=== PATIENT | female | born 1985 ===

== ENCOUNTER 2016-06-25 15:35 | Observation (INO) | payer MEDICAID, OTHER ==
[2016-06-25] MEDS ORDERED: Sodium Chloride 0.9% 1,000 ML IV STA (15:54)
--- NOTE | 2016-06-25 15:59 | ED PDOC ---
Arrival/HPI - General Historian: Patient <Tito Ingram Jr. - Last Filed: 06/25/16 18:57> <Noah Chilel - Last Filed: 06/25/16 21:16> - General Chief Complaint: Abdominal Pain Time Seen by Provider: 06/25/16 15:42 - History of Present Illness Narrative History of Present Illness (Text): Patient is a 31 yr old female who is c/o having nausea and vomiting since Friday. She states that she vomits everything that she eats. No fever. After several episodes of retching and vomiting, she later developed some LUQ and left flank pain (but her symptoms did not start out as abd pain). Pt describes her pain as a burning sensation. Pt took dramamine for her symptoms and it did help the nausea. No diarrhea. No dysuria. LMP was 2 wks ago. PMD: None . (Tito Ingram Jr.) Past Medical History - Provider Review Nursing Documentation Reviewed: Yes - Psychiatric Hx Substance Use: No - Surgical History Hx Appendectomy: Yes <Tito Ingram Jr. - Last Filed: 06/25/16 18:57> Family/Social History - Physician Review Nursing Documentation Reviewed: Yes Family/Social History: Hypertension Smoking Status: Unknown If Ever Smoked Hx Alcohol Use: Yes Frequency of alcohol use: Socially Hx Substance Use: No <Tito Ingram Jr. - Last Filed: 06/25/16 18:57> Allergies/Home Meds <Tito Ingram Jr. - Last Filed: 06/25/16 18:57> <Noah Chilel - Last Filed: 06/25/16 21:16> Allergies/Adverse Reactions: Allergies No Known Allergies Allergy (Verified 06/25/16 15:49) Home Medications: Home Meds Medication Instructions Recorded Confirmed Levonorgestrel-Ethin Estradiol 1 tab PO DAILY 06/25/16 06/25/16 [Lutera 0.02 mg-0.1 mg] Review of Systems - Review of Systems Constitutional: Fatigue Respiratory: Normal Cardiovascular: Normal Gastrointestinal: Abdominal Pain, Vomiting Skin: Normal Neurological: Normal <Tito Ingram Jr. - Last Filed: 06/25/16 18:57> Physical Exam Vital Signs Reviewed: Yes Temperature: Afebrile Blood Pressure: Normal Pulse: Regular Respiratory Rate: Normal Appearance: Positive for: Non-Toxic, Comfortable Pain Distress: None Mental Status: Positive for: Alert and Oriented X 3 - Systems Exam Head: Present: Atraumatic, Normocephalic Pupils: Present: PERRL Extroacular Muscles: Present: EOMI Conjunctiva: Present: Normal Ears: Present: Normal Mouth: Present: Dry Pharnyx: Present: Normal Nose (External): Present: Atraumatic Neck: Present: Normal Range of Motion Respiratory/Chest: Present: Clear to Auscultation, Good Air Exchange. No: Respiratory Distress, Accessory Muscle Use Cardiovascular: Present: Regular Rate and Rhythm, Normal S1, S2. No: Murmurs Abdomen: Present: Normal Bowel Sounds, Other (soft, mild LUQ tenderness, no rebound, no guarding) Back: Present: CVA Tenderness (left) Upper Extremity: Present: Normal Inspection. No: Edema Lower Extremity: Present: Normal Inspection. No: Edema Neurological: Present: Speech Normal, Motor Func Grossly Intact, Normal Sensory Function Skin: Present: Warm, Dry Psychiatric: Present: Alert, Oriented x 3, Normal Insight, Normal Concentration <Tito Ingram Jr. - Last Filed: 06/25/16 18:57> Vital Signs Temp Pulse Resp BP Pulse Ox 06/25/16 17:14 66 18 137/80 99 06/25/16 16:43 68 18 137/69 97 06/25/16 15:48 98.6 F 91 H 18 130/73 99 Medical Decision Making <Tito Ingram Jr. - Last Filed: 06/25/16 18:57> <Noah Chilel - Last Filed: 06/25/16 21:16> ED Course and Treatment: Initial Impression: Abd pain with N/V Differential diagnosis includes but is not limited to: viral gastroenteritis, bacterial gastroenteritis, /hyperemesis gravidaruum Initial plan: Will check labs, get test and hydrate (Tito Ingram Jr.) - Lab Interpretations Lab Results: 06/25/16 15:50 06/25/16 15:50 Lab Results 06/25/16 16:20: Urine Color Straw, Urine Appearance Clear, Urine pH 7.0, Ur Specific [place] <= 1.005, Urine Protein Negative, Urine Glucose (UA) Negative, Urine Ketones Negative, Urine Blood Trace-lysed H, Urine Nitrate Negative, Urine Bilirubin Negative, Urine Urobilinogen 0.2, Ur Leukocyte Esterase Trace H , Urine RBC 0 - 2, Urine WBC 0 - 2, Ur Epithelial Cells 0 - 2, Urine Bacteria Trace 06/25/16 15:50: WBC 17.1 H, RBC 4.93, Hgb 14.6, Hct 43.2, MCV 87.6, MCH 29.6, MCHC 33.8, RDW 13.3, Plt Count 408, MPV 10.1, Gran % 83.9 H, Lymph % (Auto) 13.0 L, Thayer % (Auto) 3.0, Eos % (Auto) 0.0 L, Baso % (Auto) 0.1, Gran # 14.31 H , Lymph # 2.2, Thayer # 0.5, Eos # 0.0, Baso # 0.02, Sodium 139, Potassium 3.2 L, Chloride 98, Carbon Dioxide 29, Anion Gap 15, BUN 11, Creatinine 0.6, Est GFR ( Amer) > 60, Est GFR (Non-Af Amer) > 60, Random Glucose 127 H, Calcium 9.8, Total Bilirubin 0.8, AST 28, ALT 43, Alkaline Phosphatase 74, Total Protein 8.2, Albumin 4.5, Globulin 3.7, Albumin/Globulin Ratio 1.2, Lipase 97, Beta HCG, Quant < 2.39 - Medication Orders Current Medication Orders: Sodium Chloride (Sodium Chloride 0.9%) 1,000 mls @ 250 mls/hr IV .Q4H RONALD Last Admin: 06/25/16 16:58 Dose: 250 MLS/HR eMAR Start Stop Document 06/25/16 16:58 SE (Rec: 06/25/16 16:58 SE [id number]) Intravenous Solution Start Date 06/25/16 Start Time 16:58 Ondansetron HCl (Zofran Inj) 4 mg IVP ONCE ONE Stop: 06/25/16 21:12 Discontinued Medications Famotidine (Pepcid) 20 mg IVP STAT STA Stop: 06/25/16 15:55 Last Admin: 06/25/16 16:27 Dose: 20 MG IVP Administration Document 06/25/16 16:27 SE (Rec: 06/25/16 16:28 SE [id number]) Charges for Administration # of IVP Administrations 1 Sodium Chloride (Sodium Chloride 0.9%) 1,000 mls @ 2,000 mls/hr IV .Q30M STA Stop: 06/25/16 16:23 Last Admin: 06/25/16 16:03 Dose: 2,000 MLS/HR eMAR Start Stop Document 06/25/16 16:03 SE (Rec: 06/25/16 16:03 SE [id number]) Intravenous Solution Start Date 06/25/16 Start Time 16:03 Potassium Chloride (Potassium Chloride 10 Meq/100 Ml) 100 mls @ 100 mls/hr IVPB ONCE ONE Stop: 06/25/16 17:35 Last Admin: 06/25/16 16:58 Dose: 100 MLS/HR eMAR Start Stop Document 06/25/16 16:58 SE (Rec: 06/25/16 16:58 SE [id number]) Intravenous Solution Start Date 06/25/16 Start Time 16:58 Iohexol (Omnipaque 240 (50 Ml)) Confirm Administered Dose 50 ml .ROUTE .STK-MED ONE Stop: 06/25/16 16:56 Iohexol (Omnipaque 350 100 Ml) Confirm Administered Dose 350 mg .ROUTE .STK-MED ONE Stop: 06/25/16 16:56 Metoclopramide HCl (Reglan) 10 mg IV STAT STA Stop: 06/25/16 18:09 Last Admin: 06/25/16 18:38 Dose: 10 MG eMAR Start Stop Document 06/25/16 18:38 SE (Rec: 06/25/16 18:38 [id number]) Intravenous Solution Start Date 06/25/16 Start Time 18:38 Ondansetron HCl (Zofran Inj) 4 mg IVP ONCE ONE Stop: 06/25/16 16:42 Last Admin: 06/25/16 16:58 Dose: 4 MG IVP Administration Document 06/25/16 16:58 SE (Rec: 06/25/16 16:58 [id number]) Charges for Administration # of IVP Administrations 1 Ondansetron HCl (Zofran Inj) 4 mg IVP ONCE ONE Stop: 06/25/16 17:17 Last Admin: 06/25/16 17:16 Dose: 4 MG IVP Administration Document 06/25/16 17:16 SE (Rec: 06/25/16 17:32 [id number]) Charges for Administration # of IVP Administrations 1 ED OBSERVATION Date of observation admission: 06/25/16 Time of observation admission: 16:54 <Tito Ingram Jr. - Last Filed: 06/25/16 18:57> <Noah Chilel - Last Filed: 06/25/16 21:16> - Observation admission statement Patient is being placed in observation because:: Patient with undifferentiated abdominal pain and will need more extensive work up (CT scan) (Tito Ingram Jr.) - Goals of Observation Goals of observation are:: Improvement of symptoms (Tito Ingram Jr.) - Progress Note Progress Note: 06/25/16 16:55 Patient with low potassium; will replace. Pt nauseous--Zofran ordered. (Tito Ingram Jr.) 06/25/16 19:07 Case endorsed to me by Dr. Ingram, pending CT scan, re-evaluation, and final disposition. CT scan was unremarkable, pt however with intractable nausea/ vomiting. Will admit for further evaluation 06/25/16 21:09 Case discussed with medical attendant manager consumer, who is aware and agrees with plan. Case discussed with Dr. Shearer, who is aware and agrees with plan. Accepts pt in to hospitalist service. Pt will go to [facility] observation for abdominal pain and intractable nausea/vomiting. (Noah Chilel) Disposition/Present on Arrival - Present on Arrival Any Indicators Present on Arrival: No History of DVT/PE: No History of Uncontrolled Diabetes: No Urinary Catheter: No History of Decub. Ulcer: No History Surgical Site Infection Following: None - Disposition Have Diagnosis and Disposition been Completed?: Yes Disposition Time: 18:57 <Tito Ingram Jr. - Last Filed: 06/25/16 18:57> - Present on Arrival Any Indicators Present on Arrival: No History of DVT/PE: No History of Uncontrolled Diabetes: No Urinary Catheter: No History of Decub. Ulcer: No History Surgical Site Infection Following: None - Disposition Have Diagnosis and Disposition been Completed?: Yes Disposition Time: 21:14 Patient Plan: Observation <Noah Chilel - Last Filed: 06/25/16 21:16> - Disposition Diagnosis: Nausea with vomiting, unspecified, Abdominal pain Patient Problems: Current Active Problems Problem Status Diagnosed Abdominal pain Acute Nausea with vomiting, unspecified Acute Physician Patient Turnover - . Patient Signed Over To: Noah Chilel Handoff Comments: Pt s/o to Dr. Chilel at 7:00 PM. Sign out is to follow up CT scan and reassess pt and dispo accordingly. <Tito Ingram Jr. - Last Filed: 06/25/16 18:57>
[2016-06-25 16:00] VITALS: BMI 30.9
[2016-06-25 16:06] LABS: ADD MANUAL DIFF? NO
[2016-06-25 16:25] LABS: ALB/GLOB RATIO 1.2 (1.1-1.8); ALKALINE PHOSPHATASE 74 U/L (38-133); ALT/SGPT 43 U/L (7-56); AST/SGOT 28 U/L (15-39); BILIRUBIN,TOTAL 0.8 mg/dL (0.2-1.3); BLOOD UREA NITROGEN 11 mg/dL (7-21); CALCIUM 9.8 mg/dL (8.4-10.5); CARBON DIOXIDE 29 mmol/L (21-33); CHLORIDE 98 mmol/L (98-107); GFR AFRICAN-AMERICAN > 60; GLUCOSE,RANDOM 127 mg/dL (70-110); LIPASE 97 U/L (23-300); POTASSIUM 3.2 mmol/L (3.6-5.0); SODIUM 139 mmol/L (132-148); TOTAL PROTEIN 8.2 g/dL (5.8-8.3)
[2016-06-25 16:28] LABS: BASO # 0.02 K/mm3 (0.0-2.0); BASO % 0.1 % (0.0-3.0); GRAN # 14.31 (1.4-6.5); GRAN % 83.9 % (50.0-68.0); HEMATOCRIT 43.2 % (36.0-48.0); LYMPH # 2.2 (1.2-3.4); MEAN CELL VOLUME 87.6 fL (80.0-105.0); MEAN CORPUSCULAR HEMOGLOBIN 29.6 pg (25.0-35.0); MEAN CORPUSCULAR HGB CONC 33.8 g/dl (31.0-37.0); MEAN PLATELET VOLUME 10.1 fl (7.0-11.0); MONO # 0.5 (0.1-0.6); PLATELET COUNT 408 10^3/uL (120.0-450.0); RED CELL DISTRIBUTION WIDTH 13.3 % (11.5-14.5); WHITE BLOOD COUNT 17.1 10^3/ul (4.5-11.0)
[2016-06-25] MEDS ORDERED: Potassium Chloride 10 mEq 100 ML IVPB ONE (16:36)
[2016-06-25 16:45] LABS: URINE APPEARANCE CLEAR (CLEAR); URINE BILIRUBIN NEGATIVE (NEGATIVE); URINE BLOOD TRACE-LYSED (NEGATIVE); URINE COLOR STRAW (YELLOW); URINE GLUCOSE (UA) NEGATIVE (NEGATIVE); URINE KETONE NEGATIVE (NEGATIVE); URINE LEUKOCYTE ESTERASE TRACE Leu/uL (NEGATIVE); URINE PROTEIN NEGATIVE mg/dL (<30 mg/dL); URINE UROBILINOGEN 0.2 E.U./dL (<1 E.U./dL)
[2016-06-25] MEDS ORDERED: Iohexol 240 (50 ml) ONE (16:55)
[2016-06-25] MEDS ORDERED: Iohexol 350 MG/100 ML VIAL ONE (16:55)
[2016-06-25] MEDS: Sodium Chloride 0.9% 1,000 ML IV SCH ×2 (16:58→23:23)
[2016-06-25 17:18] LABS: URINE WBC 0 - 2 /hpf (0-6)
[2016-06-25 17:19] LABS: URINE BACTERIA TRACE (NEG); URINE EPITHELIAL CELLS 0 - 2 /hpf (0-5); URINE RBC 0 - 2 /hpf (0-2)
--- NOTE | 2016-06-25 23:05 | CP.PCM.HP ---
<Marko South - Last Filed: 06/25/16 23:27> History of Present Illness - History of Present Illness History of Present Illness: 31 F with PMHx of anxiety presents to [facility] with complaints of intractable nausea and vomiting. Pt states that she recently was at a bbq on friday06/23/16 , ate half of a hamburger potatoe salad and had a few alcoholic beverages when she began to feel nauseous. Pt states that approx 20 mins after eating she vomited what she had ate. She continued to feel nauseous for the rest of the night and vomited approx 4-5 times, mix of digested and undigested food at first then bilious emesis. Pt states that she felt a "lump" in her throat and then began to feel nauseous. The following day, the pt had an appetite and had a banana, however was unable to tolerate and vomited. Pt again vomited 2-3 times. After 2 days of not tolerating PO, with continued n/v she began to expereince dull abdominal pain across the upper quadrants, with a greater intensity towards the LUQ, as well as left flank pain. The abdominal pain is described as a diffuse ache, and the left flank pain is described as sharp in nature. Pt had an episode of emesis while in ED of pink fluid. Pt denied fever, chills, cough, sob, diplopia, blurry vision, loc, dizziness, chest pains, palpitations, d/c, dysuria, hematuria, or urinary symptoms. Pt last bm was this morning and was normal-loose. PMHx: Anxiety, GERD PSHx: Appendectomy SHx: Denied tobacco abuse, admits to social etoh, and 1-2/mo marijuana. LMP 2 weeks ago FamHx: Mom: HTN/DM Meds: OCP Allergies: Seasonal, nkda PMD: None CONSTRUCTION PRODUCER: Dr. Zavaleta Present on Admission - Present on Admission Any Indicators Present on Admission: No History of DVT/PE: No History of Uncontrolled Diabetes: No Urinary Catheter: No Decubitus Ulcer Present: No Review of Systems - Review of Systems Review of Systems: as per HPI otherwise negative Past Patient History - Past Social History Smoking Status: Unknown If Ever Smoked - PSYCHIATRIC Hx Substance Use: No - SURGICAL HISTORY Hx Appendectomy: Yes Meds Allergies/Adverse Reactions: Allergies Allergy/AdvReac Type Severity Reaction Status Date / Time No Known Allergies Allergy Verified 06/25/16 15:49 Physical Exam - Constitutional Appears: No Acute Distress - Head Exam Head Exam: ATRAUMATIC, NORMAL INSPECTION, NORMOCEPHALIC - Eye Exam Eye Exam: EOMI, Normal appearance, PERRL Pupil Exam: NORMAL ACCOMODATION, PERRL - ENT Exam ENT Exam: Mucous Membranes Dry - Neck Exam Neck exam: Positive for: Normal Inspection - Respiratory Exam Respiratory Exam: Clear to Auscultation Bilateral, NORMAL BREATHING PATTERN - Cardiovascular Exam Cardiovascular Exam: REGULAR RHYTHM, +S1, +S2 - GI/Abdominal Exam GI & Abdominal Exam: Normal Bowel Sounds, Soft, Tenderness (LUQ). absent: Distended, Rebound, Rigid - Extremities Exam Extremities exam: Positive for: normal inspection - Back Exam Back exam: CVA tenderness (L) - Neurological Exam Neurological exam: Alert, CN II-XII Intact, Normal Gait, Oriented x3, Reflexes Normal - Psychiatric Exam Psychiatric exam: Normal Affect, Normal Mood - Skin Skin Exam: Dry, Intact, Normal Color, Warm Results - Vital Signs Recent Vital Signs: Last Vital Signs Temp 98.7 F 06/25/16 21:45 Pulse 70 06/25/16 22:18 Resp 16 06/25/16 22:18 BP 143/75 06/25/16 21:45 Pulse Ox 98 06/25/16 22:18 - Labs Result Diagrams: 06/25/16 15:50 06/25/16 15:50 Assessment & Plan - Assessment and Plan (Free Text) Assessment: 31 F with PMHx of anxiety presents to [facility] with complaints of intractable nausea and vomiting, admitted to med/surg for further eval. 1. Intractable n/v - CT Abd did not demonstrate any acute pathology, no obstructive uropathy, no bowel obstruction, pt did not tolerate po contrast, study with IV contrast only - IVF, Zofran, Reglan - NPO - tsh, ft4, ESR - negative b-hcg, negative lipase - GI consulted, Dr. Reyna 2. Leukocytosis - associated n/v, no diarrhea, afebrile - WBC: 17.1 - no clear source - f/u septic workup - ID consulted, Dr. Medina 3. Hypokalemia - 2/2 n/v - supplement as needed 4. GI ppx 5. DVT ppx seen reviewed and discussed with attending <Yogi Shearer - Last Filed: 06/26/16 02:50> Results - Vital Signs Recent Vital Signs: Last Vital Signs Temp 98.7 F 06/26/16 00:29 Pulse 70 06/26/16 00:29 Resp 16 06/26/16 00:29 BP 140/70 06/26/16 00:29 Pulse Ox 98 06/25/16 22:18 - Labs Result Diagrams: 06/25/16 15:50 06/25/16 15:50 Attending/Attestation - Attestation I have personally seen and examined this patient.: Yes I have fully participated in the care of the patient.: Yes I have reviewed all pertinent clinical information: Yes Notes (Text): 06/26/16 01:15 Patient was seen by me when she was in bed # 566-01. Agree with history , physical examination, assessment and plan. This 31 year old white woman who has past medical history of seasonal allergies , sinus problems,anxiety, social use of alcohol, GERD, eyeglasses for far vision , family history of gestational DM (Mother),appendectomy is admitted for intractable nausea/vomiting, hypokalemia.
[2016-06-25] MEDS: Potassium Chloride 10 mEq 100 ML IVPB SCH (23:12)
[2016-06-26] MEDS: Potassium Chloride 10 mEq 100 ML IVPB SCH (02:00)
[2016-06-26] MEDS ORDERED: HYDROmorphone 0.5 mg/0.5 ml ISec IVP STA (05:42)
[2016-06-26 06:54] LABS: ADD MANUAL DIFF? NO
[2016-06-26 07:07] LABS: BASO # 0.01 K/mm3 (0.0-2.0); BASO % 0.1 % (0.0-3.0); GRAN % 70.7 % (50.0-68.0); HEMATOCRIT 38.8 % (36.0-48.0); LYMPH % 20.7 % (22.0-35.0); MEAN PLATELET VOLUME 10.1 fl (7.0-11.0); MONO # 1.2 (0.1-0.6); MONO % 8.5 % (1.0-6.0); PLATELET COUNT 336 10^3/uL (120.0-450.0); RED CELL DISTRIBUTION WIDTH 13.2 % (11.5-14.5); WHITE BLOOD COUNT 14.3 10^3/ul (4.5-11.0)
[2016-06-26 07:16] LABS: MAGNESIUM 1.7 mg/dL (1.7-2.2); PHOSPHOROUS 3.1 mg/dL (2.5-4.5)
[2016-06-26 07:19] LABS: ALB/GLOB RATIO 1.2 (1.1-1.8); ALKALINE PHOSPHATASE 60 U/L (38-133); ALT/SGPT 48 U/L (7-56); AST/SGOT 35 U/L (15-39); BILIRUBIN,TOTAL 0.9 mg/dL (0.2-1.3); BLOOD UREA NITROGEN 8 mg/dL (7-21); CALCIUM 8.1 mg/dL (8.4-10.5); CARBON DIOXIDE 23 mmol/L (21-33); CHLORIDE 106 mmol/L (95-110); GFR AFRICAN-AMERICAN > 60; GLUCOSE,RANDOM 106 mg/dL (70-110); POTASSIUM 3.6 mmol/L (3.6-5.0); SODIUM 138 mmol/L (132-148); TOTAL PROTEIN 6.3 g/dL (5.8-8.3)
[2016-06-26 07:43] LABS: FREE T4 0.99 ng/dL (0.78-2.19); THYROID STIMULATING HORMONE 1.8 MIU/ml (0.46-4.68)
[2016-06-26 08:17] VITALS: RESP 18
--- NOTE | 2016-06-26 09:25 | CON ---
DATE: 06/26/2016 I examined the patient this morning. She is a 31-year-old white female admitted with complaints of nausea and vomiting which initiated on Friday very shortly after a barbecue. She did not relate the possibility of tainted food, nor did anybody else get sick at the affair that she was at. She indicated that the vomiting was very significant shortly after eating and proceeded for the most part all of Friday after the event. Friday she appeared to improve quite a bit, advanced her diet and subsequently started developing nausea and vomiting again which proceeded through some part of yesterday as well. This morning she feels the nausea is somewhat dissipated. She feels the nausea is more in the form of hunger type symptoms where she would prefer to have something by mouth. She does have a headache as well. She related some degree of epigastric and left upper quadrant pain. When questioned, the patient does not practice antireflux precautions. She apparently has no GI history of gastric ulcer disease, esophagitis, hiatal hernia, etc. She has had her appendix out. There has not been any hematemesis or rectal bleeding. PHYSICAL EXAMINATION: VITAL SIGNS: I reviewed this patient's vital signs. HEENT: Significant for dry mouth. LUNGS: Clear to auscultation. HEART: Regular rhythm. ABDOMEN: Soft, mildly tender in the epigastric and left upper quadrant. She experiences a nausea sensation on palpation of the left upper quadrant. LABORATORY DATA: I reviewed this patient's laboratory data including the CBC as well as the chemistry. OVERALL ASSESSMENT: This is a 31-year-old female admitted with complaints of nausea, vomiting, epigastric and left upper quadrant discomfort. Symptoms probably secondary to gastroenteritis due to the very small time interval after consuming food on Friday. Symptoms have dissipated somewhat; however, she had a recurrence of symptoms on Friday after advancing diet probably because of esophagitis secondary to the nausea and vomiting. The patient feels that at the current time that she would like to advance her diet and her symptoms are most likely secondary to lack of food plus medication. Also note that the patient has been hypokalemic on 1 laboratory value yesterday. No endoscopic evaluation is planned for this patient. She wishes to advance diet; therefore, I will increase her diet to small volume clears and check progress. She has all the appropriate orders on board including Zofran 4 q. 4 as well as pantoprazole. Gatito Reyna DO, PhD cc: [id number] TT: 06/26/2016 09:25:16 Confirmation # [id number] Dictation # [id number] [id number]
--- NOTE | 2016-06-26 09:42 | CT ---
PROCEDURE: CT Abdomen and Pelvis with contrast HISTORY: Abd pain/high WBC (unable to drink contrast) COMPARISON: None. TECHNIQUE: Contrast dose: Visipaque 321 100 mL. Patient unable to drink oral contrast at this setting Radiation dose: Total exam DLP = 583 mGy-cm. This CT exam was performed using one or more of the following dose reduction techniques: Automated exposure control, adjustment of the mA and/or kV according to patient size, and/or use of iterative reconstruction technique. FINDINGS: LOWER THORAX: Unremarkable. LIVER: Unremarkable. No gross lesion or ductal dilatation. GALLBLADDER AND BILE DUCTS: Unremarkable. PANCREAS: Unremarkable. No gross lesion or ductal dilatation. SPLEEN: Unremarkable. ADRENALS: Unremarkable. No mass. KIDNEYS AND URETERS: Unremarkable. No hydronephrosis. No solid mass. VASCULATURE: Unremarkable. No aortic aneurysm. BOWEL: Unremarkable. No obstruction. No gross mural thickening. APPENDIX: Not identified. No pericecal inflammatory changes suggested PERITONEUM: Unremarkable. No free fluid. No free air. LYMPH NODES: Unremarkable. No enlarged lymph nodes. BLADDER: Unremarkable. REPRODUCTIVE: Unremarkable. BONES: No acute fracture. OTHER FINDINGS: Tiny inferior left hemipelvic phlebolith. IMPRESSION: Unremarkable contrast enhanced CT of the abdomen and pelvis.
[2016-06-26] MEDS: Sodium Chloride 0.9% 1,000 ML IV SCH (09:45)
[2016-06-26] MEDS ORDERED: Enoxaparin 40 mg Syringe SC SCH (10:00)
[2016-06-26] MEDS ORDERED: Piperacillin/Tazobact 3.375 gm 100 ML IVPB SCH (12:00)
--- NOTE | 2016-06-26 16:32 | CP.PCM.DIS ---
<Jay Lane - Last Filed: 06/26/16 17:56> Provider - Provider Date of Admission: 06/25/16 16:32 Attending physician: Bri Ring MD Primary care physician: NO PRIMARY CARE PROVIDER Consults: Dr. Gatito Medina Time Spent in preparation of Discharge (in minutes): 35 Hospital Course - Lab Results Lab Results: Most Recent Lab Values WBC 14.3 10^3/ul (4.5-11.0) H 06/26/16 06:45 RBC 4.41 10^6/uL (3.5-6.1) 06/26/16 06:45 Hgb 12.8 gm/dL (12.0-16.0) 06/26/16 06:45 Hct 38.8 % (36.0-48.0) 06/26/16 06:45 MCV 88.0 fL (80.0-105.0) 06/26/16 06:45 MCH 29.0 pg (25.0-35.0) 06/26/16 06:45 MCHC 33.0 g/dl (31.0-37.0) 06/26/16 06:45 RDW 13.2 % (11.5-14.5) 06/26/16 06:45 Plt Count 336 10^3/uL (120.0-450.0) 06/26/16 06:45 MPV 10.1 fl (7.0-11.0) 06/26/16 06:45 Gran % 70.7 % (50.0-68.0) H 06/26/16 06:45 Lymph % (Auto) 20.7 % (22.0-35.0) L 06/26/16 06:45 [place] % (Auto) 8.5 % (1.0-6.0) H 06/26/16 06:45 Eos % (Auto) 0.0 % (1.5-5.0) L 06/26/16 06:45 Baso % (Auto) 0.1 % (0.0-3.0) 06/26/16 06:45 Gran # 10.10 (1.4-6.5) H 06/26/16 06:45 Lymph # 3.0 (1.2-3.4) 06/26/16 06:45 [place] # 1.2 (0.1-0.6) H 06/26/16 06:45 Eos # 0.0 (0.0-0.7) 06/26/16 06:45 Baso # 0.01 K/mm3 (0.0-2.0) 06/26/16 06:45 ESR 3 mm/hr (0.0-20.0) 06/26/16 06:45 Sodium 138 mmol/L (132-148) 06/26/16 06:45 Potassium 3.6 mmol/L (3.6-5.0) 06/26/16 06:45 Chloride 106 mmol/L (95-110) 06/26/16 06:45 Carbon Dioxide 23 mmol/L (21-33) 06/26/16 06:45 Anion Gap 13 (10-20) 06/26/16 06:45 BUN 8 mg/dL (7-21) 06/26/16 06:45 Creatinine 0.5 mg/dL (0.5-1.4) 06/26/16 06:45 Est GFR ( Amer) > 60 06/26/16 06:45 Est GFR (Non-Af Amer) > 60 06/26/16 06:45 Random Glucose 106 mg/dL (70-110) 06/26/16 06:45 Calcium 8.1 mg/dL (8.4-10.5) L 06/26/16 06:45 Phosphorus 3.1 mg/dL (2.5-4.5) 06/26/16 06:45 Magnesium 1.7 mg/dL (1.7-2.2) 06/26/16 06:45 Total Bilirubin 0.9 mg/dL (0.2-1.3) 06/26/16 06:45 AST 35 U/L (15-39) 06/26/16 06:45 ALT 48 U/L (7-56) 06/26/16 06:45 Alkaline Phosphatase 60 U/L (38-133) 06/26/16 06:45 Total Protein 6.3 g/dL (5.8-8.3) 06/26/16 06:45 Albumin 3.3 g/dL (3.0-4.8) 06/26/16 06:45 Globulin 2.9 gm/dL 06/26/16 06:45 Albumin/Globulin Ratio 1.2 (1.1-1.8) 06/26/16 06:45 Lipase 97 U/L (23-300) 06/25/16 15:50 Procalcitonin < 0.05 NG/ML (0.19-0.49) L 06/26/16 06:45 Free T4 0.99 ng/dL (0.78-2.19) 06/26/16 06:45 TSH 3rd Generation 1.8 MIU/ml (0.46-4.68) 06/26/16 06:45 Beta HCG, Quant < 2.39 mIU/mL (0-6.15) 06/25/16 15:50 Urine Color Straw (YELLOW) 06/25/16 16:20 Urine Appearance Clear (CLEAR) 06/25/16 16:20 Urine pH 7.0 (4.7-8.0) 06/25/16 16:20 Ur Specific [place] <= 1.005 (1.005-1.035) 06/25/16 16:20 Urine Protein Negative mg/dL (<30 mg/dL) 06/25/16 16:20 Urine Glucose (UA) Negative mg/dL (NEGATIVE) 06/25/16 16:20 Urine Ketones Negative mg/dL (NEGATIVE) 06/25/16 16:20 Urine Blood Trace-lysed (NEGATIVE) H 06/25/16 16:20 Urine Nitrate Negative (NEGATIVE) 06/25/16 16:20 Urine Bilirubin Negative (NEGATIVE) 06/25/16 16:20 Urine Urobilinogen 0.2 E.U./dL (<1 E.U./dL) 06/25/16 16:20 Ur Leukocyte Esterase Trace Sergio/uL (NEGATIVE) H 06/25/16 16:20 Urine RBC 0 - 2 /hpf (0-2) 06/25/16 16:20 Urine WBC 0 - 2 /hpf (0-6) 06/25/16 16:20 Ur Epithelial Cells 0 - 2 /hpf (0-5) 06/25/16 16:20 Urine Bacteria Trace (NEG) 06/25/16 16:20 - Hospital Course Hospital Course: HPI: 31 F with PMHx of anxiety presents to [facility] with complaints of intractable nausea and vomiting. Pt states that she recently was at a bbq on friday06/23/16, ate half of a hamburger potatoe salad and had a few alcoholic beverages when she began to feel nauseous. Pt states that approx 20 mins after eating she vomited what she had ate. She continued to feel nauseous for the rest of the night and vomited approx 4-5 times, mix of digested and undigested food at first then bilious emesis. Pt states that she felt a "lump" in her throat and then began to feel nauseous. The following day, the pt had an appetite and had a banana, however was unable to tolerate and vomited. Pt again vomited 2-3 times. After 2 days of not tolerating PO, with continued n/v she began to expereince dull abdominal pain across the upper quadrants, with a greater intensity towards the LUQ, as well as left flank pain. The abdominal pain is described as a diffuse ache, and the left flank pain is described as sharp in nature. Pt had an episode of emesis while in ED of pink fluid. Pt denied fever, chills, cough, sob, diplopia, blurry vision, loc, dizziness, chest pains, palpitations, d/c, dysuria, hematuria, or urinary symptoms. Pt last bm was this morning and was normal-loose. Patient is a 31 y/o F who presented to the hospital with complaint of intractable nausea and vomiting. She was started on IV fluid hydration and zosyn for nausea. A Ct of the abdomen and pelvis was unremarkable. GI was consulted and no endoscopic procedure required. ID was consulted who believed this to be toxin-based with no need for ABX. The patient's symptoms improved and she was able to tolerate her diet. She requested to be discharged home. She was determined medically stable for discharge. She was discharged with prescriptions for Pepcid and Zofran which were transmitted to [facility] [place]. She was advised to: follow up with your primary care physician within a week of discharge; advance your diet slowly and remain hydrated; get regular daily exercise; avoid alcohol, tobacco, and drug use; if your condition worsens or new symptoms arise, please return to the emergency room. She and family verbalized understanding and she was discharged home. This is a brief summary of the patient's stay at this facility, for more detail , see patient's full chart. - Date & Time of H&P Date of H&P: 06/25/16 Time of H&P: 22:53 Discharge Exam - Head Exam Head Exam: ATRAUMATIC, NORMAL INSPECTION, NORMOCEPHALIC - Eye Exam Eye Exam: EOMI, Normal appearance, PERRL Pupil Exam: NORMAL ACCOMODATION - ENT Exam ENT Exam: Mucous Membranes Moist - Respiratory Exam Respiratory Exam: NORMAL BREATHING PATTERN. absent: Rales, Rhonchi, Wheezes - Cardiovascular Exam Cardiovascular Exam: REGULAR RHYTHM, +S1, +S2 - GI/Abdominal Exam GI & Abdominal Exam: Normal Bowel Sounds, Soft. absent: Tenderness - Extremities Exam Extremities exam: normal capillary refill, normal inspection, pedal pulses present - Neurological Exam Neurological exam: Alert, CN II-XII Intact, Oriented x3 - Psychiatric Exam Psychiatric exam: Normal Affect, Normal Mood - Skin Skin Exam: Dry, Intact, Normal Color, Warm Discharge Plan - Discharge Medications Prescriptions: Famotidine [Pepcid] 40 mg PO DAILY #30 tablet Ondansetron ODT [Zofran ODT] 4 mg PO Q6H PRN #24 odt PRN Reason: Nausea/Vomiting - Follow Up Plan Condition: GOOD Disposition: HOME/ ROUTINE Instructions: Pneumococcal Vaccine for Adults (DC), Acute Abdominal Pain (DC), Acute Abdominal Pain (GEN), Anxiety (DC) Additional Instructions: You are medically stable for discharge. You are discharged with prescriptions for Pepcid and Zofran which were transmitted to [facility] [place]. Please follow up with your primary care physician within a week of discharge. Advance your diet slowly and remain hydrated. Get regular daily exercise. Avoid alcohol, tobacco, and drug use. If your condition worsens or new symptoms arise, please return to the emergency room. Referrals: PCP,NO [Primary Care Provider] - <Bri Ring MD - Last Filed: 06/29/16 10:22> Provider - Provider Date of Admission: 06/25/16 16:32 Attending physician: Bri Ring MD Primary care physician: NO PRIMARY CARE PROVIDER Hospital Course - Lab Results Lab Results: Most Recent Lab Values WBC 14.3 10^3/ul (4.5-11.0) H 06/26/16 06:45 RBC 4.41 10^6/uL (3.5-6.1) 06/26/16 06:45 Hgb 12.8 gm/dL (12.0-16.0) 06/26/16 06:45 Hct 38.8 % (36.0-48.0) 06/26/16 06:45 MCV 88.0 fL (80.0-105.0) 06/26/16 06:45 MCH 29.0 pg (25.0-35.0) 06/26/16 06:45 MCHC 33.0 g/dl (31.0-37.0) 06/26/16 06:45 RDW 13.2 % (11.5-14.5) 06/26/16 06:45 Plt Count 336 10^3/uL (120.0-450.0) 06/26/16 06:45 MPV 10.1 fl (7.0-11.0) 06/26/16 06:45 Gran % 70.7 % (50.0-68.0) H 06/26/16 06:45 Lymph % (Auto) 20.7 % (22.0-35.0) L 06/26/16 06:45 [place] % (Auto) 8.5 % (1.0-6.0) H 06/26/16 06:45 Eos % (Auto) 0.0 % (1.5-5.0) L 06/26/16 06:45 Baso % (Auto) 0.1 % (0.0-3.0) 06/26/16 06:45 Gran # 10.10 (1.4-6.5) H 06/26/16 06:45 Lymph # 3.0 (1.2-3.4) 06/26/16 06:45 [place] # 1.2 (0.1-0.6) H 06/26/16 06:45 Eos # 0.0 (0.0-0.7) 06/26/16 06:45 Baso # 0.01 K/mm3 (0.0-2.0) 06/26/16 06:45 ESR 3 mm/hr (0.0-20.0) 06/26/16 06:45 Sodium 138 mmol/L (132-148) 06/26/16 06:45 Potassium 3.6 mmol/L (3.6-5.0) 06/26/16 06:45 Chloride 106 mmol/L (95-110) 06/26/16 06:45 Carbon Dioxide 23 mmol/L (21-33) 06/26/16 06:45 Anion Gap 13 (10-20) 06/26/16 06:45 BUN 8 mg/dL (7-21) 06/26/16 06:45 Creatinine 0.5 mg/dL (0.5-1.4) 06/26/16 06:45 Est GFR ( Amer) > 60 06/26/16 06:45 Est GFR (Non-Af Amer) > 60 06/26/16 06:45 Random Glucose 106 mg/dL (70-110) 06/26/16 06:45 Calcium 8.1 mg/dL (8.4-10.5) L 06/26/16 06:45 Phosphorus 3.1 mg/dL (2.5-4.5) 06/26/16 06:45 Magnesium 1.7 mg/dL (1.7-2.2) 06/26/16 06:45 Total Bilirubin 0.9 mg/dL (0.2-1.3) 06/26/16 06:45 AST 35 U/L (15-39) 06/26/16 06:45 ALT 48 U/L (7-56) 06/26/16 06:45 Alkaline Phosphatase 60 U/L (38-133) 06/26/16 06:45 Total Protein 6.3 g/dL (5.8-8.3) 06/26/16 06:45 Albumin 3.3 g/dL (3.0-4.8) 06/26/16 06:45 Globulin 2.9 gm/dL 06/26/16 06:45 Albumin/Globulin Ratio 1.2 (1.1-1.8) 06/26/16 06:45 Lipase 97 U/L (23-300) 06/25/16 15:50 Procalcitonin < 0.05 NG/ML (0.19-0.49) L 06/26/16 06:45 Free T4 0.99 ng/dL (0.78-2.19) 06/26/16 06:45 TSH 3rd Generation 1.8 MIU/ml (0.46-4.68) 06/26/16 06:45 Beta HCG, Quant < 2.39 mIU/mL (0-6.15) 06/25/16 15:50 Urine Color Straw (YELLOW) 06/25/16 16:20 Urine Appearance Clear (CLEAR) 06/25/16 16:20 Urine pH 7.0 (4.7-8.0) 06/25/16 16:20 Ur Specific [place] <= 1.005 (1.005-1.035) 06/25/16 16:20 Urine Protein Negative mg/dL (<30 mg/dL) 06/25/16 16:20 Urine Glucose (UA) Negative mg/dL (NEGATIVE) 06/25/16 16:20 Urine Ketones Negative mg/dL (NEGATIVE) 06/25/16 16:20 Urine Blood Trace-lysed (NEGATIVE) H 06/25/16 16:20 Urine Nitrate Negative (NEGATIVE) 06/25/16 16:20 Urine Bilirubin Negative (NEGATIVE) 06/25/16 16:20 Urine Urobilinogen 0.2 E.U./dL (<1 E.U./dL) 06/25/16 16:20 Ur Leukocyte Esterase Trace Sergio/uL (NEGATIVE) H 06/25/16 16:20 Urine RBC 0 - 2 /hpf (0-2) 06/25/16 16:20 Urine WBC 0 - 2 /hpf (0-6) 06/25/16 16:20 Ur Epithelial Cells 0 - 2 /hpf (0-5) 06/25/16 16:20 Urine Bacteria Trace (NEG) 06/25/16 16:20 Attending/Attestation - Attestation I have personally seen and examined this patient.: Yes I have fully participated in the care of the patient.: Yes I have reviewed all pertinent clinical information, including history, physical exam and plan: Yes Notes (Text): Patient was seen and examined with center medical and lab director .Agreed with resident assessment and plan. 31 Yrs old Female wasa dmitted with intractable Nausea and vomiting , due to gastro enteritis, improved, tolerating diet Patient was evaluated by GI, no inpatient wrk up is needed.Leukocytosis is due to intractable Nausea and vomiting, improving. Management plan was discussed in detail with patient Education was provided.
[2016-06-26 16:33] VITALS: BP 136/77; PULSE 60; TEMP 98.6; O2SAT 99
--- NOTE | 2016-06-26 17:30 | CP.PCM.CON ---
History of Present Illness - History of Present Illness History of Present Illness: 31 year old female with PMH of anxiety, S/P appendectomy, GERD came in complaining of nausea and vomiting for the past 4 days after she ate a burger and potatoes last Friday. The symptoms started within 15-20 minutes of eating the foods. She denies having diarrhea. She states that she has reflux disease, and this worsens the nausea. She has some abdominal cramping which has improved , no headache or dizziness, no chest pain, no SOB, no cough or colds, no dysuria , no chest pain, no sore throat, no blurring of vision, no muscle or body aches. CT scan of the abdomen and pelvis did not show a specific lesion. Infectious diseases consult is requested to further evaluate and manage. Review of Systems - Review of Systems All systems: reviewed and no additional remarkable complaints except (as per HPI ) Past Patient History - Past Social History Smoking Status: Never Smoked - CARDIAC Hx Cardiac Disorders: No - PULMONARY Hx Respiratory Disorders: No - NEUROLOGICAL Hx Neurological Disorder: No - HEENT Hx HEENT Problems: No - RENAL Hx Chronic Kidney Disease: No - ENDOCRINE/METABOLIC Hx Endocrine Disorders: No - HEMATOLOGICAL/ONCOLOGICAL Hx Blood Disorders: No - INTEGUMENTARY Hx Dermatological Problems: No - MUSCULOSKELETAL/RHEUMATOLOGICAL Hx Musculoskeletal Disorders: No Hx Falls: No - GASTROINTESTINAL Hx Gastrointestinal Disorders: No - GENITOURINARY/GYNECOLOGICAL Hx Genitourinary Disorders: No - PSYCHIATRIC Hx Psychophysiologic Disorder: Yes Hx Anxiety: Yes Other/Comment: etoh - SURGICAL HISTORY Hx Surgeries: Yes Hx Appendectomy: Yes Meds Home Medications: Home Medication List Medication Instructions Recorded Confirmed Type Famotidine [Pepcid] 40 mg PO DAILY #30 tablet 06/26/16 Rx Ondansetron ODT [Zofran ODT] 4 mg PO Q6H PRN #24 odt 06/26/16 Rx Allergies/Adverse Reactions: Allergies Allergy/AdvReac Type Severity Reaction Status Date / Time No Known Allergies Allergy Verified 06/25/16 15:49 - Medications Medications: Current Medications Enoxaparin Sodium (Lovenox) 40 mg SC DAILY [facility] PRN Reason: Protocol Sodium Chloride (Sodium Chloride 0.9%) 1,000 mls @ 250 mls/hr IV .Q4H [facility] Last Admin: 06/25/16 23:23 Dose: 250 mls/hr Metoclopramide HCl (Reglan) 10 mg IVP Q4H PRN PRN Reason: Nausea/Vomiting Last Admin: 06/26/16 03:32 Dose: 10 mg Ondansetron HCl (Zofran Inj) 4 mg IVP Q4H PRN PRN Reason: Nausea/Vomiting Last Admin: 06/26/16 02:03 Dose: 4 mg Pantoprazole Sodium (Protonix Inj) 40 mg IVP DAILY [facility] Physical Exam - Constitutional Appears: Non-toxic, No Acute Distress - Head Exam Head Exam: NORMAL INSPECTION - ENT Exam ENT Exam: Mucous Membranes Moist - Neck Exam Neck exam: Negative for: Lymphadenopathy, Meningismus - Respiratory Exam Respiratory Exam: Decreased Breath Sounds - Cardiovascular Exam Cardiovascular Exam: +S1, +S2 - GI/Abdominal Exam GI & Abdominal Exam: Soft. absent: Tenderness Results - Vital Signs Recent Vital Signs: Last Vital Signs Temp 98.7 F 06/26/16 00:29 Pulse 70 06/26/16 00:29 Resp 16 06/26/16 00:29 BP 140/70 06/26/16 00:29 Pulse Ox 98 06/25/16 22:18 - Labs Result Diagrams: 06/26/16 06:45 06/26/16 06:45 Assessment & Plan - Assessment and Plan (Free Text) Plan: Assessment Systemic Inflammatory Response Syndrome, consider secondary to toxin-mediated gastroenteritis anxiety S/P appendectomy GERD Plan Follow up cultures; will continue supportive therapy and monitor off antibiotics
--- NOTE | 2016-07-10 23:35 | RAD ---
HISTORY: Abdominal pain, nausea and vomiting COMPARISON: No prior. FINDINGS: LUNGS: No active pulmonary disease. PLEURA: No significant pleural effusion identified, no pneumothorax apparent. CARDIOVASCULAR: Normal. OSSEOUS STRUCTURES: No significant abnormalities. VISUALIZED UPPER ABDOMEN: Normal. OTHER FINDINGS: None. IMPRESSION: No active disease.
== END 2016-06-26 17:27 | disposition home or self-care (01) ==
LOC: ED 15:35 → EROBSV 16:32 → ERH 21:08 → 5RNO 22:33
PROVIDERS: ADMIT Internal Medicine; ATTEND Internal Medicine
DX: K52.9 Noninfective gastroenteritis and colitis, unspecified (principal); K21.9 Gastro-esophageal reflux disease without esophagitis; R11.2 Nausea with vomiting, unspecified; F41.9 Anxiety disorder, unspecified; D72.829 Elevated white blood cell count, unspecified; E87.6 Hypokalemia
CPT/HCPCS: 36415; 71010; 74177; 80053; 81001; 83690; 83735; 84100; 84145; 84439; 84443; 84702; 85025; 85651; 87086; 96365; 96375; 96376; 99285; C9113; G0378; J1170; J1885; J2405; J2543; J2765; J3480; J7040; Q9966; Q9967